=== PATIENT | female | born 1935 | race Caucasian/White ===

== ENCOUNTER 2021-05-11 21:39 | Emergency (ER) | payer MEDICARE, BC ==
--- NOTE | 2021-05-11 22:06 | EDM.PDOC ---
ED HPI GENERAL MEDICAL PROBLEM - General Stated Complaint: FALL Time Seen by Provider: 05/11/21 22:00 Source of Information: Reports: Patient History Limitations: Reports: No Limitations - History of Present Illness INITIAL COMMENTS - FREE TEXT/NARRATIVE: Pt comes to the emergency department today from the assisted living center with complaints of a fall. Earlier today aprox 1200 the patient was trying to get get up from the bed when she felt that she was too weak and fell onto the ground. She laid on her knees for approximately a half an hour or so and was not able to get up. She relates that she had no weakness dizziness lightheadedness chest pain or syncope prior to her fall. She has complained of some generalized weakness that has been getting worse over the past couple of months. She has had no fever or chills. No chest pain no shortness of breath or difficulty breathing. No cough or congestion. No abdominal pain. No nausea or vomiting. The long-term reports that she has had some very foul dark smelling urine that was sent for a sample at the clinic earlier today but the results have not come through. The patient denies any hematuria dysuria urinary frequency. No black tarry stools. She denies any focalized weakness. No headache confusion. The assisted living center also states that this patient is unable to get out of bed by herself and she is unable to stay at the assisted living this has been something that has been slowly getting worse over the past couple of weeks. bilateral knees Pain Score (Numeric/FACES): 3 - Related Data Allergies Allergy/AdvReac Type Severity Reaction Status Date / Time No Known Allergies Allergy Verified 05/11/21 22:45 Home Meds: Home Meds cephALEXin [Cephalexin] 500 mg PO QID #20 capsule 05/11/21 [Rx] Bumetanide 1 mg PO BID 05/12/21 [History] Cholecalciferol (Vitamin D3) [Vitamin D3] 1,000 unit PO DAILY 05/12/21 [History] Metoprolol Tartrate [Lopressor] 100 mg PO BID 05/12/21 [History] Omeprazole 20 mg PO DAILY 05/12/21 [History] atorvaSTATin Calcium [Lipitor] 40 mg PO BEDTIME 05/12/21 [History] calcitrioL [Calcitriol] 2 cap PO DAILY 05/12/21 [History] lisinopriL [Lisinopril] 10 mg PO DAILY 05/12/21 [History] ED ROS GENERAL - Review of Systems Review Of Systems: Comprehensive ROS is negative, except as noted in HPI. ED EXAM, GENERAL - Physical Exam Exam: See Below Exam Limited By: No Limitations General Appearance: Alert, WD/WN, No Apparent Distress Eye Exam: Bilateral Eye: EOMI, PERRL Ears: Normal External Exam, Normal Canal Nose: Normal Inspection Throat/Mouth: Normal Inspection Head: Atraumatic, Normocephalic Neck: Normal Inspection, Supple, Non-Tender, Full Range of Motion. No: Tender Lateral, Tender Midline Respiratory/Chest: No Respiratory Distress, Lungs Clear, Normal Breath Sounds, No Accessory Muscle Use, Chest Non-Tender Cardiovascular: Normal Peripheral Pulses, Regular Rate, Rhythm, No Edema Peripheral Pulses: 2+: Radial (L), Radial (R), Posterior Tibial (L), Posterior Tibial (R), Dorsalis Pedis (L), Dorsalis Pedis (R) GI/Abdominal: Normal Bowel Sounds, Soft, Non-Tender, No Organomegaly (Female) Exam: Deferred Rectal (Female) Exam: Deferred Back Exam: Normal Inspection, Full Range of Motion. No: Paraspinal Tenderness, Vertebral Tenderness Extremities: Normal Inspection (Normal inspection other than some superficial abrasions to the patellar region bilaterally. She is able to flex and extend appropriately. No crepitus. No bruising swelling ecchymosis or tenderness.), Normal Range of Motion, Non-Tender Neurological: Alert, Oriented, CN II-XII Intact Psychiatric: Normal Affect, Normal Mood Skin Exam: Warm, Dry, Intact, Normal Color, No Rash Lymphatic: No Adenopathy Course - Vital Signs Last Recorded V/S: Last Vital Signs Temp 99.3 F 05/11/21 21:40 Pulse 65 05/11/21 21:40 Resp 16 05/11/21 21:40 BP 186/67 H 05/11/21 21:40 Pulse Ox 94 L 05/11/21 21:40 - Orders/Labs/Meds Labs: Laboratory Tests 05/11/21 05/11/21 05/11/21 Range/Units 22:10 22:10 22:10 WBC 8.6 (4.0-10.0) x10^3/uL RBC 4.05 (4.00-5.50) x10^6/uL Hgb 12.8 (12.0-16.0) g/dL Hct 37.8 (33.0-47.0) % MCV 93.3 H (78.0-93.0) fL MCH 31.6 (26.0-32.0) pg MCHC 33.9 (32.0-36.0) g/dL RDW Coeff of Trice 12.3 (10.0-15.0) % Plt Count 179 (130-400) x10^3/uL Immature Gran % (Auto) 0.10 (0.00-0.43) % Neut % (Auto) 73.2 (50.0-80.0) % Lymph % (Auto) 13.8 L (25.0-50.0) % [place] % (Auto) 11.3 H (2.0-11.0) % Eos % (Auto) 1.3 (0.0-4.0) % Baso % (Auto) 0.3 (0.2-1.2) % Neut # (Auto) 6.3 (1.8-7.7) x10^3/uL Lymph # (Auto) 1.2 (1.0-4.8) x10^3/uL [place] # (Auto) 1.0 H (0.0-0.8) x10^3/uL Eos # (Auto) 0.1 (0.0-0.5) x10^3/uL Baso # (Auto) 0.0 (0.0-0.2) x10^3/uL Immature Gran # (Auto) 0.01 (0.00-0.07) x10^3/uL Sodium 142 (136-145) mmol/L Potassium 4.1 (3.5-5.1) mmol/L Chloride 106 (98-107) mmol/L Carbon Dioxide 27 (21-32) mmol/L Anion Gap 13.1 (5-15) mmol/L BUN 48 H (7-18) mg/dL Creatinine 2.5 H (0.55-1.02) mg/dL Est Cr Clr Drug Dosing TNP Estimated GFR (MDRD) 18 Glucose 125 H (70-99) mg/dL Lactic Acid 1.1 (0.4-2.0) mmol/L Calcium 11.9 H D (8.5-10.1) mg/dL Corrected Calcium 12.4 H* D (8.5-10.1) mg/dL Total Bilirubin 0.4 (0.2-1.0) mg/dL AST 13 L (15-37) U/L ALT 15 (14-59) U/L Alkaline Phosphatase 85 (46-116) U/L C-Reactive Protein < 0.2 (<=0.9) mg/dL Total Protein 7.1 (6.4-8.2) g/dL Albumin 3.4 (3.4-5.0) g/dL Globulin 3.7 Albumin/Globulin Ratio 0.92 Urine Color (YELLOW) Urine Appearance (CLEAR) Urine pH (5.0-8.0) Ur Specific [place] Urine Protein (NEGATIVE) mg/dL Urine Glucose (UA) (NEGATIVE) mg/dL Urine Ketones (NEGATIVE) mg/dL Urine Occult Blood (NEGATIVE) Urine Nitrite (NEGATIVE) Urine Bilirubin (NEGATIVE) Urine Urobilinogen (0.2) EU/dL Ur Leukocyte Esterase (NEGATIVE) Urine RBC (NOT SEEN) /HPF Urine WBC (NOT SEEN) /HPF Ur Squamous Epith Cells (NOT SEEN) /HPF Urine Bacteria (NOT SEEN) /HPF Urine Mucus (NOT SEEN) /LPF SARS CoV-2 RNA Rapid GEM (NEGATIVE) 05/11/21 05/11/21 Range/Units 22:10 22:25 WBC (4.0-10.0) x10^3/uL RBC (4.00-5.50) x10^6/uL Hgb (12.0-16.0) g/dL Hct (33.0-47.0) % MCV (78.0-93.0) fL MCH (26.0-32.0) pg MCHC (32.0-36.0) g/dL RDW Coeff of Trice (10.0-15.0) % Plt Count (130-400) x10^3/uL Immature Gran % (Auto) (0.00-0.43) % Neut % (Auto) (50.0-80.0) % Lymph % (Auto) (25.0-50.0) % [place] % (Auto) (2.0-11.0) % Eos % (Auto) (0.0-4.0) % Baso % (Auto) (0.2-1.2) % Neut # (Auto) (1.8-7.7) x10^3/uL Lymph # (Auto) (1.0-4.8) x10^3/uL [place] # (Auto) (0.0-0.8) x10^3/uL Eos # (Auto) (0.0-0.5) x10^3/uL Baso # (Auto) (0.0-0.2) x10^3/uL Immature Gran # (Auto) (0.00-0.07) x10^3/uL Sodium (136-145) mmol/L Potassium (3.5-5.1) mmol/L Chloride (98-107) mmol/L Carbon Dioxide (21-32) mmol/L Anion Gap (5-15) mmol/L BUN (7-18) mg/dL Creatinine (0.55-1.02) mg/dL Est Cr Clr Drug Dosing Estimated GFR (MDRD) Glucose (70-99) mg/dL Lactic Acid (0.4-2.0) mmol/L Calcium (8.5-10.1) mg/dL Corrected Calcium (8.5-10.1) mg/dL Total Bilirubin (0.2-1.0) mg/dL AST (15-37) U/L ALT (14-59) U/L Alkaline Phosphatase (46-116) U/L C-Reactive Protein (<=0.9) mg/dL Total Protein (6.4-8.2) g/dL Albumin (3.4-5.0) g/dL Globulin Albumin/Globulin Ratio Urine Color Yellow (YELLOW) Urine Appearance Cloudy H (CLEAR) Urine pH 6.0 (5.0-8.0) Ur Specific [place] 1.020 Urine Protein 100 H (NEGATIVE) mg/dL Urine Glucose (UA) Negative (NEGATIVE) mg/dL Urine Ketones Negative (NEGATIVE) mg/dL Urine Occult Blood Trace-intact H (NEGATIVE) Urine Nitrite Positive H (NEGATIVE) Urine Bilirubin Negative (NEGATIVE) Urine Urobilinogen 0.2 (0.2) EU/dL Ur Leukocyte Esterase Small H (NEGATIVE) Urine RBC 0-5 (NOT SEEN) /HPF Urine WBC 20-30 H (NOT SEEN) /HPF Ur Squamous Epith Cells Occasional H (NOT SEEN) /HPF Urine Bacteria Moderate H (NOT SEEN) /HPF Urine Mucus Rare H (NOT SEEN) /LPF SARS CoV-2 RNA Rapid GEM Negative (NEGATIVE) Meds: Medications Discontinued Medications Generic Name Dose Route Start Last Admin Trade Name Silva PRN Reason Stop Dose Admin Ceftriaxone Sodium 1 gm 05/11/21 22:49 05/11/21 23:05 Ceftriaxone 1 Gm Vial IVPUSH 05/11/21 22:50 1 gm STAT ONE Administration Sodium Chloride 1,000 mls @ 125 mls/hr 05/11/21 23:00 05/11/21 22:55 Normal Saline IV 125 mls/hr ASDIRECTED FELIPA Administration - Radiology Interpretation Free Text/Narrative:: CT of the head per radiology shows no acute intracranial findings. Chronic changes as described. Some nonspecific scattered white matter changes most likely reflective of chronic small vessel ischemic changes in patient of this age. - Re-Assessments/Exams Free Text/Narrative Re-Assessment/Exam: 05/11/21 22:50 Labs are drawn. Her creatinine is at 2.5. In reviewing her chart and [place] it appears her baseline runs right about 2.2. So she has at baseline. Her urine is clearly infectious with positive nitrites positive leukocytes U WBCs 2030 urine bacteria many. Urine culture pending. Ceftriaxone [address] of the head of is negative per radiology. 05/11/21 22:51 She does have an elevated calcium. With a corrected calcium of 12.4 which puts her in moderate hypercalcemia. 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 It appears that her calcium typically runs right around 10. Saline 250 mill bolus 125 an hour. The patient clearly has an urinary tract infection at this time. But she is not septic appearing and/or by laboratory evaluation. She also has some hypercalcemia which could be due to dehydration which could also be an aspect of her weakness. We will hold her calcitriol at this time for the next 2 days and have her recheck. Have her increase fluids. We will treat her with Keflex for her urinary tract infection. In the emergency department the patient was able to stand on her own and walk with a wheelchair without difficulty and walks very steadily and felt very comfortable. She ambulated to the bathroom on her own and return back to ED. Discharge directions as below are explained to the patient she was comfortable with this plan and her questions were answered. Departure - Departure Time of Disposition: 00:32 Disposition: Home, Self-Care 01 Clinical Impression: Hypercalcemia, UTI, Urinary tract infectious disease CKD (chronic kidney disease), stage III Qualifiers: Chronic kidney disease stage 3 subtype: stage 3b (GFR 30-44) Qualified Code(s): N18.32 - Chronic kidney disease, stage 3b - Discharge Information Prescriptions: cephALEXin [Cephalexin] 500 mg PO QID #20 capsule Referrals: Juanita Stinson DO [Primary Care Provider] - Forms: ED Department Discharge Additional Instructions: Hold Calcitriol for 2 days. Contact PCP in the morning to see when they would like it restarted and labs rechecked. Push fluids at least 8-10 glasses of water a day. Cephalexin 1 capsule 4 times a day for 5 days. RX sent to [facility]. Notify PCP of calcium level. Recheck in the ED if new or worsening symptoms.
[2021-05-11 22:34] LABS: CHLORIDE,CL 106 mmol/L (98-107); SODIUM,NA 142 mmol/L (136-145)
[2021-05-11 22:37] LABS: ANION GAP 13.1 mmol/L (5-15)
[2021-05-11] MEDS ORDERED: cefTRIAXone 1 GM Vial IVPUSH ONE (22:49)
[2021-05-11] MEDS ORDERED: Sodium Chloride 0.9% 1,000 ML IV SCH (23:00)
--- NOTE | 2021-05-12 06:40 | CT ---
[id number] CT/CT Head WO IV EXAM: CT Head WO IV CLINICAL DATA: FALL, CONFUSION COMPARISON STUDY: None FINDINGS: No intracranial hemorrhage, extra-axial fluid collection, mass, or acute ischemia. No hydrocephalus. Juxtacortical and periventricular white matter hypodensity superimposed mild diffuse parenchymal atrophy. Findings are nonspecific but commonly seen as changes of chronic small vessel disease. Calcified atherosclerotic plaque in the intracranial segments of both internal carotid arteries. Calvarium intact. Paranasal sinuses and mastoid air cells are clear. IMPRESSION: No acute intracranial findings. Greg Mackey MD 05/12/21 0639 Thank you for allowing us to participate in the care of your patient.
--- NOTE | 2021-05-23 12:53 | PCM.SN.2 ---
- Free Text/Narrative Note: Call to patient to see how she is doing. Urine culture is positive for E coli, 50,000-100,000 CFU, urine was found to have organism too fatstidious for susceptibility testing at the state lab. Patient is off antibiotics. feeling good and no problems. Offered follow up with pcp if still having any concerns.
== END 2021-05-12 00:32 | disposition home or self-care (01) ==
LOC: VM.ED 21:39
DX: S80.212A Abrasion, left knee, initial encounter (principal); S80.211A Abrasion, right knee, initial encounter; N39.0 Urinary tract infection, site not specified; E83.52 Hypercalcemia; N18.32 Chronic kidney disease, stage 3b; Z20.822 Contact with and (suspected) exposure to COVID-19; W06.XXXA Fall from bed, initial encounter; Y92.099 Unspecified place in other non-institutional residence as the place of occurrence of the external cause
CPT/HCPCS: 36415; 70450; 80053; 81001; 83605; 85025; 86140; 87086; 87088; 96374; 99284; 99285-25; J0696; J7030; U0002

== ENCOUNTER 2022-05-07 09:41 | Emergency (ER) | payer MEDICARE, BC ==
[2022-05-07] MEDS ORDERED: Alteplase 81 MG in Premix Bag 1 BAG IV ONE (10:26)
[2022-05-07 10:29] LABS: CHLORIDE,CL 106 mmol/L (98-107); SODIUM,NA 140 mmol/L (136-145)
[2022-05-07 10:30] LABS: ANION GAP 11.8 mmol/L (5-15); ESTIMATED GFR 18 mL/min (>=60)
== END 2022-05-07 10:45 | disposition short-term general hospital (02) ==
LOC: VM.ED 09:41
DX: I63.9 Cerebral infarction, unspecified (principal); E78.00 Pure hypercholesterolemia, unspecified; K21.9 Gastro-esophageal reflux disease without esophagitis; I12.9 Hypertensive chronic kidney disease with stage 1 through stage 4 chronic kidney disease, or unspecified chronic kidney disease; N18.9 Chronic kidney disease, unspecified; Z79.899 Other long term (current) drug therapy
CPT/HCPCS: 37195; 70450; 80053; 82550; 84484; 85025; 85610; 86140; 93005; 99285; J2997; 93010